=== PATIENT | male | born 1990 | race Hispanic/Latino ===

== ENCOUNTER 2017-06-15 07:48 | Emergency (ER) | payer SELFPAY | END 2017-06-15 08:40 | disposition home or self-care (01) | LOC: ERS 07:48 | DX: M54.5 Low back pain (principal); F17.210 Nicotine dependence, cigarettes, uncomplicated; X50.1XXA Overexertion from prolonged static or awkward postures, initial encounter | CPT/HCPCS: 99283 ==

== ENCOUNTER 2018-12-03 10:31 | Emergency (ER) | payer SELFPAY | END 2018-12-03 14:06 | disposition left against medical advice (07) | LOC: ERS 10:31 | DX: Z53.21 Procedure and treatment not carried out due to patient leaving prior to being seen by health care provider (principal) ==

== ENCOUNTER 2019-02-23 08:45 | Emergency (ER) | payer SELFPAY ==
[2019-02-23] MEDS ORDERED: Dexamethasone 4 mg/ml Vial ONE (09:27)
== END 2019-02-23 09:31 | disposition home or self-care (01) ==
LOC: ERS 08:45
DX: J10.1 Influenza due to other identified influenza virus with other respiratory manifestations (principal); F17.210 Nicotine dependence, cigarettes, uncomplicated
CPT/HCPCS: 87804; 99283; J1100

== ENCOUNTER 2022-05-06 16:53 | Emergency (ER) | payer OTHER, SELFPAY ==
[2022-05-06] MEDS ORDERED: HYDROcodone/Acetaminophen 5/325 mg Tablet ONE (18:08)
== END 2022-05-06 18:49 | disposition home or self-care (01) ==
LOC: ERS 16:53
DX: S82.112A Displaced fracture of left tibial spine, initial encounter for closed fracture (principal); V86.55XA Driver of 3- or 4- wheeled all-terrain vehicle (ATV) injured in nontraffic accident, initial encounter